=== PATIENT | female | born 1950 | race Caucasian/White ===

== ENCOUNTER → 2018-04-05 | Day surgery (SDC) | payer OTHER ==
[2018-03-30 14:09] VITALS: BMI 37.0
[~2018-04-05] MED LIST: ACETAMINOPHEN 325 MG TABLET (FP) PO PRN; ACETYLCHOLINE 1:100 INTRA-OCUL 20 MG/2 ML KIT ONE; CYCLOPENTOLATE HCL 1% OPHTH SOLN 2 ML BOTTLE OD SCH; EPI-SHUGARCAINE (EPINEPHRINE 0.025% & LIDOCAINE-PF 0.75%) 4ML ONE; GENTAMICIN SULFATE 0.3% OPHTHALMIC (EYE DROPS) 5ML BOTTLE OD SCH; KETOROLAC TROMETHAMINE 0.5% EYE DROP 1 DROP DROPS OD SCH; MIDAZOLAM HCL 2 MG/2 ML SINGLE DOSE VIAL ONE; PHENYLEPHRINE 2.5% OPHTH SOLN 15 ML BOTTLE OD SCH; POVIDONE-IODINE 5% OPHTHALMIC PREP 30 ML SOLUTION ONE; TROPICAMIDE 1% OPHTH SOLN 15 ML BOTTLE OD SCH
[2018-04-05] MEDS: KETOROLAC TROMETHAMINE 0.5% EYE DROP 1 DROP DROPS ONE ×5 (10:50→11:10)
[2018-04-05] MEDS: GENTAMICIN SULFATE 0.3% OPHTHALMIC (EYE DROPS) 5ML BOTTLE ONE ×5 (10:50→11:10)
[2018-04-05] MEDS: CYCLOPENTOLATE HCL 1% OPHTH SOLN 2 ML BOTTLE ONE ×5 (10:50→11:10)
[2018-04-05] MEDS: TROPICAMIDE 1% OPHTH SOLN 15 ML BOTTLE ONE ×5 (10:50→11:10)
[2018-04-05] MEDS: PHENYLEPHRINE 2.5% OPHTH SOLN 15 ML BOTTLE ONE ×5 (10:50→11:10)
[2018-04-05 14:18] VITALS: BP 180/90; PULSE 64; TEMP 98
--- NOTE | 2018-04-05 16:06 | SPEC ---
DATE OF OPERATION: 04/05/2018 PREOPERATIVE DIAGNOSIS: Cataract, right eye. POSTOPERATIVE DIAGNOSIS: Cataract, right eye. PROCEDURE: Cataract extraction via phacoemulsification with insertion of posterior chamber lens implant, right eye. SURGEON: Helena Lee MD MARKETING AUTOMATION MANAGER: Helena Lee MD ANESTHESIA: Topical with sedation. ESTIMATED BLOOD LOSS: Less than 1 mL. COMPLICATIONS: None. SPECIMENS: None. PROCEDURE: The patient was identified in the holding area. After all risks, benefits, and alternatives were explained to the patient, informed consent was obtained. The right eye was marked with a marking pen. The patient then entered the operating room on an eye stretcher. After a formal timeout was performed, topical tetracaine eye drops were instilled onto the right eye. The patient was then instructed to sit up and look straight ahead and using a Toric bubble marker, the corneal axis of the astigmatism were marked then the patient was then instructed to lay back down. The right eye was then prepped and draped in the usual sterile fashion. An eyelid speculum was placed into the eyelid of the right eye. Using a Toric dial buffer and a degree marker, the axis of the astigmatism was marked onto the cornea which was determined to be 105 degrees then, a superotemporal incision was created using a 15-degree blade. Topical preservative-free epinephrine and preservative-free lidocaine was then injected into the anterior chamber. Viscoelastic was injected into the anterior chamber. An infratemporal incision was then created using a 2.4 mm keratome blade. Then, a 360-degree continuous curvilinear capsulorhexis was then created using bent cystotome and Utrata forceps. Hydrodissection was performed using balanced saline solution on a cannula. Phacoemulsification was introduced to disassemble and remove the nucleus in its entirety. Irrigation/aspiration was then used to remove any remaining cortical material from the eye. The capsular bag was reformed using viscoelastic. An Hayder model [id number] with a power of 22.0 diopters, serial number [id number] was inspected and found to be defect-free and injected into the capsular bag. Irrigation/aspiration was then used to remove any remaining viscoelastic from the eye. Then the Toric lens was rotated so that the degree marker on the optic was then aligned with 105-degree axis on the cornea. Then, intracameral injections of Miochol and Miostat were then administered, and the pupil came down and was round. All wounds were hydrated with balanced saline solution and noted to be watertight. There was a red reflex present. The lens was perfectly centered in the capsular bag. The pupil was round, and the eye had adequate pressure. Topical antibiotic eye drops and ointment were then administered to the right eye. The eyelid speculum was removed from the right eye. The right eye was shielded. The patient tolerated the procedure well and left the operating room in stable condition to follow up in the eye clinic tomorrow morning at 9:00. HELENA LEE M.D. [id number]
== END | disposition home or self-care (01) ==
LOC: FASU 09:24
PROVIDERS: ATTEND Ophthalmology
PROC: 08RJ3JZ Replacement of Right Lens with Synthetic Substitute, Percutaneous Approach (ICD-10-PCS; principal; 2018-04-05 13:00)
DX: H26.9 Unspecified cataract (principal)

== ENCOUNTER 2018-04-19 08:13 | Day surgery (SDC) | payer OTHER ==
[2018-04-14 14:53] VITALS: BMI 37.0
[~2018-04-19 08:13] MED LIST changes: -ACETAMINOPHEN 325 MG TABLET (FP) PO PRN; -ACETYLCHOLINE 1:100 INTRA-OCUL 20 MG/2 ML KIT ONE; -CYCLOPENTOLATE HCL 1% OPHTH SOLN 2 ML BOTTLE OD SCH; +CYCLOPENTOLATE HCL 1% OPHTH SOLN 2 ML BOTTLE OS SCH; -EPI-SHUGARCAINE (EPINEPHRINE 0.025% & LIDOCAINE-PF 0.75%) 4ML ONE; -GENTAMICIN SULFATE 0.3% OPHTHALMIC (EYE DROPS) 5ML BOTTLE OD SCH; +GENTAMICIN SULFATE 0.3% OPHTHALMIC (EYE DROPS) 5ML BOTTLE OS SCH; -KETOROLAC TROMETHAMINE 0.5% EYE DROP 1 DROP DROPS OD SCH; +KETOROLAC TROMETHAMINE 0.5% EYE DROP 1 DROP DROPS OS SCH; -MIDAZOLAM HCL 2 MG/2 ML SINGLE DOSE VIAL ONE; -PHENYLEPHRINE 2.5% OPHTH SOLN 15 ML BOTTLE OD SCH; +PHENYLEPHRINE 2.5% OPHTH SOLN 15 ML BOTTLE OS SCH; -POVIDONE-IODINE 5% OPHTHALMIC PREP 30 ML SOLUTION ONE; -TROPICAMIDE 1% OPHTH SOLN 15 ML BOTTLE OD SCH; +TROPICAMIDE 1% OPHTH SOLN 15 ML BOTTLE OS SCH
[2018-04-19] MEDS: CYCLOPENTOLATE HCL 1% OPHTH SOLN 2 ML BOTTLE ONE ×5 (09:00→09:20)
[2018-04-19] MEDS: KETOROLAC TROMETHAMINE 0.5% EYE DROP 1 DROP DROPS ONE ×5 (09:00→09:20)
[2018-04-19] MEDS: PHENYLEPHRINE 2.5% OPHTH SOLN 15 ML BOTTLE ONE ×5 (09:00→09:20)
[2018-04-19] MEDS: TROPICAMIDE 1% OPHTH SOLN 15 ML BOTTLE ONE ×5 (09:00→09:20)
[2018-04-19] MEDS: GENTAMICIN SULFATE 0.3% OPHTHALMIC (EYE DROPS) 5ML BOTTLE ONE ×5 (09:00→09:20)
[2018-04-19] MEDS ORDERED: ACETAMINOPHEN 325 MG TABLET (FP) PO PRN (09:41)
[2018-04-19] MEDS ORDERED: BACITRACIN/POLYMYXIN OPH OINT 3.5 GM TUBE ONE (11:15)
[2018-04-19] MEDS ORDERED: BETAXOLOL HCL 0.25% OPHTHALMIC 10 ML DROPSBTL ONE (11:15)
[2018-04-19] MEDS ORDERED: NEO/POLYMYX B SULF/DEXAMETH OPHTHALMIC 5ML BOTTLE ONE (11:16)
[2018-04-19] MEDS ORDERED: ACETYLCHOLINE 1:100 INTRA-OCUL 20 MG/2 ML KIT ONE (11:16)
[2018-04-19] MEDS ORDERED: TETRACAINE 0.5% OPHTH SOLN 2 ML BOTTLE ONE (11:16)
[2018-04-19] MEDS ORDERED: EPI-SHUGARCAINE (EPINEPHRINE 0.025% & LIDOCAINE-PF 0.75%) 4ML ONE (11:16)
[2018-04-19] MEDS ORDERED: POVIDONE-IODINE 5% OPHTHALMIC PREP 30 ML SOLUTION ONE (11:16)
[2018-04-19] MEDS ORDERED: MIDAZOLAM HCL 2 MG/2 ML SINGLE DOSE VIAL ONE (11:17)
[2018-04-19] MEDS ORDERED: SODIUM HYALURONATE 8.5 MG/0.85 ML DISP.SYRIN IO ONE (11:33)
[2018-04-19] MEDS ORDERED: ACETYLCHOLINE 1:100 INTRA-OCUL 20 MG/2 ML KIT IO ONE (11:33)
[2018-04-19] MEDS ORDERED: TETRACAINE 0.5% OPHTH SOLN 2 ML BOTTLE OS ONE (11:34)
[2018-04-19] MEDS ORDERED: NEO/POLYMYX B SULF/DEXAMETH OPHTHALMIC 5ML BOTTLE OS ONE ×2 (11:34→12:23)
[2018-04-19] MEDS ORDERED: CHONDROITIN/NA HYALURONATE 0.5 ML DISP.SYRIN IO ONE (11:34)
[2018-04-19] MEDS ORDERED: BETAXOLOL HCL 0.25% OPHTHALMIC 10 ML DROPSBTL OS ONE ×2 (11:35→12:23)
[2018-04-19] MEDS ORDERED: BACITRACIN/POLYMYXIN OPH OINT 3.5 GM TUBE OS ONE ×2 (11:35→12:23)
[2018-04-19] MEDS ORDERED: TETRACAINE 0.5% OPHTH SOLN 2 ML BOTTLE OU ONE (11:44)
[2018-04-19] MEDS ORDERED: ACETAMINOPHEN 325 MG TABLET (FP) ONE (12:40)
--- NOTE | 2018-04-19 13:12 | OP ---
DATE OF OPERATION: 04/19/2018 PREOPERATIVE DIAGNOSIS: Cataract, left eye. POSTOPERATIVE DIAGNOSIS: Cataract, left eye. PROCEDURE: Cataract extraction via phacoemulsification with insertion of posterior chamber lens implant, left eye, Toric lens. SURGEON: Chucky Lee MD TELEGRAPH OFFICE MANAGER: Chucky Lee MD ANESTHESIA: Topical with sedation. ESTIMATED BLOOD LOSS: Less than 1 mL. COMPLICATIONS: None. SPECIMENS: None. DESCRIPTION OF PROCEDURE: The patient was identified in the holding area. After all the risks, benefits, and alternatives were explained to the patient, informed consent was obtained. The left eye was marked with a marking pen. The patient then entered the operating room on an eye stretcher. After a formal time-out was performed, topical tetracaine eye drops were instilled onto the left eye. The patient was then asked to sit up and look straight ahead, and the left eye was marked with a marking pen and a Toric Bubble Marker to harleen the cardinal axes of astigmatism. The patient was then asked to lie back down flat on her back, and the left eye was then prepped and draped in the usual sterile fashion. An eyelid speculum was placed beneath the eyelids of the left eye. Then, the axis of astigmatism was marked onto the cornea using a Toric marker and a Toric dial, and the axis was noted to be 85 degrees. Then, an inferotemporal paracentesis incision was created using a 15-degree blade. Topical preservative-free epinephrine and preservative-free lidocaine were then injected into the anterior chamber. Viscoelastic was injected into the anterior chamber. A superotemporal main incision was created using a 2.4-mm keratome blade. A 360-degree continuous curvilinear capsulorrhexis was then created using bent cystotome and Utrata forceps. Hydrodissection was performed using balanced saline solution on a cannula. Phacoemulsification was introduced to disassemble and remove the nucleus in its entirety. Irrigation/aspiration was then used to remove any remaining cortical material from the eye. The capsular bag was reformed using viscoelastic. An Hayder model [id number] with a power of 23.0 diopters, serial number [id number], was inspected and found to be defect-free and injected into the capsular bag. Irrigation/aspiration was then used to remove any remaining viscoelastic from the eye. The anterior chamber was reformed using balanced saline solution. Then, the Toric lens was rotated, so that the axis of the astigmatism on the optic matched the axis of astigmatism on the cornea, which was 85 degrees. Then, intracameral injections of Miochol and Miostat were then administered, and the pupil came down and was round. All wounds were hydrated with balanced saline solution, noted to be watertight. There was a red reflex present. The anterior chamber was deep. The lens was perfectly centered in the capsular bag. Then, topical antibiotic eye drops and ointment were then administered to the left eye. The eyelid speculum was removed from the left eye. The left eye was shielded. The patient tolerated the procedure well and left the operating room in stable condition to follow up in the eye clinic tomorrow morning at 9:00. CHUCKY LEE M.D. [id number]
[2018-04-19 13:18] VITALS: TEMP 98
[2018-04-19 13:26] VITALS: BP 140/50; PULSE 72
== END 2018-04-19 13:26 | disposition home or self-care (01) ==
LOC: FASU 08:13
PROVIDERS: ATTEND Ophthalmology
PROC: 08RK3JZ Replacement of Left Lens with Synthetic Substitute, Percutaneous Approach (ICD-10-PCS; principal; 2018-04-19 11:46)
DX: H26.9 Unspecified cataract (principal)